=== PATIENT | male | born 1975 | race Caucasian/White ===

== ENCOUNTER 2023-01-31 12:27 | Inpatient (IN) | payer MEDICAID, OTHER ==
[~2023-01-31] VITALS: Ht 172.7 cm; Wt 98.8 kg
[2023-01-31 13:00] VITALS: PULSE 84; RESP 16; O2SAT 94
[2023-01-31 13:29] LABS: Basophils # (auto) 0 10 ^3/uL (0-0.2); Basophils % (auto) 0.2 % (0.0-2.0); Eosinophils # (auto) 0.1 10 ^3/uL (0-0.8); Eosinophils % (auto) 0.5 % (0.0-7.0); Lymphocytes # (auto) 3.9 10 ^3/uL (0.4-5.4); Lymphocytes % (auto) 34.8 % (10.0-50.0); Mean Corpuscular Hgb Conc. 33.4 g/dL (32.0-36.0); Mean Corpuscular Volume 89.7 fL (80.0-100.0); Monocytes # (auto) 0.5 10 ^3/uL (0-1.3); Monocytes % (auto) 4.6 % (0.0-12.0); Neutrophils # (auto) 6.8 10 ^3/uL (1.6-8.6); Neutrophils % (auto) 59.9 % (37.0-80.0); Red Blood Cells 5.01 10^6/uL (4.5-5.90); Red Cell Distribution Width 13.7 % (11.8-14.3); White Blood Cell 11.3 10^3/uL (4.4-10.8)
[2023-01-31] MEDS ORDERED: ONDANSETRON HCL 4 MG/2 ML VIAL IV ONE (13:30)
[2023-01-31] MEDS ORDERED: ACETAMINOPHEN 325 MG TAB PO ONE (13:30)
[2023-01-31] MEDS ORDERED: ASPirin 81 mg TAB PO ONE (13:30)
[2023-01-31 13:42] LABS: Albumin 3.6 g/dL (3.4-5.0); Calcium 9.3 mg/dL (8.5-10.1); Magnesium 2.2 mg/dL (1.6-2.6); Potassium 3.9 mmol/L (3.5-5.1)
[2023-01-31 13:48] LABS: BUN/Creatinine Ratio 12.7 (10.0-20.0); Bilirubin, Total 0.5 mg/dL (0.2-1.0)
[2023-01-31 13:51] LABS: INR 1.06 (0.9-1.15); Partial Thromboplastin Time 21.1 SEC (24.5-34.5)
[2023-01-31 15:02] LABS: Urine Bacteria NONE SEEN /hpf (None Seen); Urine Blood Negative /uL (Negative); Urine Mucus FEW (None Seen); Urine Specific Gravity 1.021 (1.001-1.035); Urine WBC 1 /hpf (0 - 3)
[2023-01-31 15:18] LABS: Alcohol, Urine < 3.0 mg/dL (0-10); Amphetamine Screen, Urine NEGATIVE (NEGATIVE); Barbiturate Scree,Urine NEGATIVE (NEGATIVE); Benzodiazephine Screen, Urine NEGATIVE (NEGATIVE); Cannabinoid Screen, Urine NEGATIVE (NEGATIVE); Cocaine Screen, Urine NEGATIVE (NEGATIVE); Opiate Scree,Urine NEGATIVE (NEGATIVE); Phencyclidine Screen, Urine NEGATIVE (NEGATIVE)
[2023-01-31] MEDS ORDERED: IOHEXOL 350 MG/ML 100ML IJ ONE (16:14)
[2023-01-31] MEDS ORDERED: AMIODARONE HCL 200 MG TAB PO ONE (16:45)
[2023-01-31] MEDS ORDERED: METOPROLOL SUCCINATE XL 50 MG TAB PO ONE (16:45)
[2023-01-31] MEDS ORDERED: MORPHINE SULFATE INJ 2 MG/ml SYRG IV PRN (16:45)
[2023-01-31] MEDS ORDERED: NITROGLYCERIN 0.4 MG SL TAB SL PRN (16:45)
[2023-01-31] MEDS ORDERED: ENOXAPARIN SOD 100 MG/1 ML SYRINGE SC ONE (17:00)
[2023-01-31 17:11] LABS: Cholesterol 191 mg/dL (< 200)
[2023-01-31 17:13] LABS: HDL Cholesterol 52 mg/dL (40-59); LDL Cholesterol 123 mg/dL (< 100); Triglycerides 84 mg/dL (< 150)
[2023-01-31 20:20] VITALS: PULSE 68; RESP 13; O2SAT 93
[2023-01-31] MEDS ORDERED: HYDROcodone-ACET 5/325MG TAB PO PRN (21:15)
[2023-01-31] MEDS ORDERED: DOCUSATE SOD 100 MG CAP PO PRN (21:15)
[2023-01-31] MEDS ORDERED: ONDANSETRON HCL 4 MG/2 ML VIAL IV PRN (21:15)
[2023-01-31] MEDS ORDERED: ACETAMINOPHEN 325 MG TAB PO PRN (21:15)
[2023-01-31 21:53] LABS: Free T3 3.05 pg/mL (2.3-4.2); Free T4 (Free Thyroxine) 0.97 ng/dL (0.89-1.76)
[2023-01-31] MEDS: SODIUM CHLORIDE 0.9% 1,000 ML IV SCH (22:19)
[2023-01-31] MEDS: AMIODARONE HCL 200 MG TAB PO SCH (22:19)
[2023-02-01 06:35] LABS: Basophils # (auto) 0 10 ^3/uL (0-0.2); Basophils % (auto) 0.4 % (0.0-2.0); Eosinophils # (auto) 0.4 10 ^3/uL (0-0.8); Eosinophils % (auto) 3.8 % (0.0-7.0); Hematocrit 41.5 % (41.0-53.0); Hemoglobin 14.1 g/dL (13.5-17.5); Lymphocytes # (auto) 1.9 10 ^3/uL (0.4-5.4); Lymphocytes % (auto) 20.2 % (10.0-50.0); Mean Corpuscular Hemoglobin 30.5 pg (28.0-32.0); Mean Corpuscular Hgb Conc. 33.9 g/dL (32.0-36.0); Mean Corpuscular Volume 89.9 fL (80.0-100.0); Monocytes # (auto) 0.8 10 ^3/uL (0-1.3); Monocytes % (auto) 8.3 % (0.0-12.0); Neutrophils # (auto) 6.3 10 ^3/uL (1.6-8.6); Neutrophils % (auto) 67.3 % (37.0-80.0); Red Blood Cells 4.61 10^6/uL (4.5-5.90); Red Cell Distribution Width 13.5 % (11.8-14.3); White Blood Cell 9.3 10^3/uL (4.4-10.8)
[2023-02-01 07:03] LABS: Potassium 4.1 mmol/L (3.5-5.1)
[2023-02-01 07:13] LABS: Albumin 3.3 g/dL (3.4-5.0); BUN/Creatinine Ratio 13.5 (10.0-20.0); Bilirubin, Total 0.4 mg/dL (0.2-1.0); Calcium 8.8 mg/dL (8.5-10.1); Total Protein 6.8 g/dL (6.4-8.2)
[2023-02-01 07:35] VITALS: PULSE 64; RESP 15; O2SAT 95
[2023-02-01] MEDS: ENOXAPARIN SOD 100 MG/1 ML SYRINGE SC SCH ×2 (09:01→20:25)
[2023-02-01] MEDS: AMIODARONE HCL 200 MG TAB PO SCH ×2 (10:48→21:52)
[2023-02-01] MEDS: MAGNESIUM OXIDE 400 MG TAB PO SCH (10:48)
[2023-02-01] MEDS: ASPirin 81 mg TAB PO SCH (10:48)
[2023-02-01] MEDS: METOPROLOL SUCCINATE XL 50 MG TAB PO SCH (10:51)
[2023-02-01] MEDS: SODIUM CHLORIDE 0.9% 1,000 ML IV SCH ×2 (14:00→21:52)
[2023-02-01 19:30] VITALS: BP 134/82; PULSE 70; RESP 18; TEMP 98.1
[2023-02-01 20:00] VITALS: BP 134/82; PULSE 70; PULSE 73; RESP 18; TEMP 98.1; O2SAT 97
[2023-02-01 22:00] VITALS: BP 134/82; PULSE 70; RESP 18; TEMP 98.1; O2SAT 97
[2023-02-02 05:00] VITALS: BP 118/76; PULSE 70; RESP 16; TEMP 97.6; O2SAT 96
[2023-02-02 08:00] VITALS: BP 134/82; PULSE 55; PULSE 70; RESP 18; TEMP 98.1; O2SAT 97
[2023-02-02] MEDS: ENOXAPARIN SOD 100 MG/1 ML SYRINGE SC SCH ×2 (08:00→20:48)
[2023-02-02] MEDS: ASPirin 81 mg TAB PO SCH (10:03)
[2023-02-02] MEDS: MAGNESIUM OXIDE 400 MG TAB PO SCH (10:03)
[2023-02-02] MEDS: METOPROLOL SUCCINATE XL 50 MG TAB PO SCH (10:03)
[2023-02-02] MEDS: AMIODARONE HCL 200 MG TAB PO SCH ×2 (10:03→21:02)
[2023-02-02 12:33] VITALS: BP 123/77; PULSE 64; RESP 21; TEMP 98; O2SAT 98
[2023-02-02 16:38] VITALS: BP 134/84; PULSE 63; RESP 21; TEMP 98; O2SAT 97
[2023-02-02 20:00] VITALS: BP 137/86; PULSE 61; PULSE 62; PULSE 70; RESP 20; TEMP 98.1; O2SAT 97
[2023-02-02 22:00] VITALS: BP 137/86; PULSE 62; RESP 20; TEMP 98.1; O2SAT 98
[2023-02-02] MEDS: SODIUM CHLORIDE 0.9% 1,000 ML IV SCH (23:15)
[2023-02-03] VITALS (11 sets, daily range): BP systolic 111–137; BP diastolic 63–84; PULSE 57–83; RESP 13–22; TEMP 97.7–98.1; O2SAT 93–100
[2023-02-03] MEDS ORDERED: LIDOCAINE 2%HCL (LOCAL ANESTH.) INJ 20ML MDV ONE (07:47)
[2023-02-03] MEDS ORDERED: IOHEXOL 350 MG/ML 100ML IJ ONE (07:47)
[2023-02-03] MEDS: ENOXAPARIN SOD 100 MG/1 ML SYRINGE SC SCH (08:00)
[2023-02-03] MEDS ORDERED: ANGIOMAX 250 MG VIAL IV ONE (08:01)
[2023-02-03] MEDS ORDERED: HEPARIN SODIUM (PORCINE) 5000 UNITS/ML 1ML VIAL ONE (08:01)
[2023-02-03] MEDS ORDERED: SODIUM CHL 0.9% 0 ML ONE (08:01)
[2023-02-03] MEDS ORDERED: VERAPAMIL 2.5MG/ML INJ 2ML VIAL IV ONE (08:01)
[2023-02-03] MEDS ORDERED: fentaNYL CITRATE 100 MCG/2 ML VL ONE (08:01)
[2023-02-03] MEDS ORDERED: MIDAZOLAM HCL 2MG/2ML 2ml VIAL (1mg/ml) ONE (08:01)
[2023-02-03] MEDS ORDERED: SODIUM CHL 0.9% 50 ML ONE (08:02)
[2023-02-03] MEDS: AMIODARONE HCL 200 MG TAB PO SCH ×2 (10:00→21:34)
[2023-02-03] MEDS: ASPirin 81 mg TAB PO SCH (10:00)
[2023-02-03] MEDS: METOPROLOL SUCCINATE XL 50 MG TAB PO SCH (10:00)
[2023-02-03] MEDS: MAGNESIUM OXIDE 400 MG TAB PO SCH (10:05)
[2023-02-03 11:58] LABS: Basophils # (auto) 0.1 10 ^3/uL (0-0.2); Basophils % (auto) 0.9 % (0.0-2.0); Eosinophils # (auto) 0.4 10 ^3/uL (0-0.8); Eosinophils % (auto) 5.5 % (0.0-7.0); Hematocrit 43.3 % (41.0-53.0); Lymphocytes # (auto) 2.1 10 ^3/uL (0.4-5.4); Lymphocytes % (auto) 28.4 % (10.0-50.0); Mean Corpuscular Hemoglobin 29.3 pg (28.0-32.0); Mean Corpuscular Hgb Conc. 32.3 g/dL (32.0-36.0); Mean Corpuscular Volume 90.7 fL (80.0-100.0); Monocytes # (auto) 0.5 10 ^3/uL (0-1.3); Monocytes % (auto) 6.9 % (0.0-12.0); Neutrophils # (auto) 4.3 10 ^3/uL (1.6-8.6); Neutrophils % (auto) 58.3 % (37.0-80.0); Nucleated Red Blood Cells % 0.2 %; Red Blood Cells 4.78 10^6/uL (4.5-5.90); Red Cell Distribution Width 13.7 % (11.8-14.3); White Blood Cell 7.3 10^3/uL (4.4-10.8)
[2023-02-03 12:17] LABS: Potassium 4.2 mmol/L (3.5-5.1)
[2023-02-03 12:24] LABS: BUN/Creatinine Ratio 11.5 (10.0-20.0)
[2023-02-03] MEDS: SODIUM CHLORIDE 0.9% 1,000 ML IV SCH (15:03)
[2023-02-03] MEDS ORDERED: ATORVASTATIN 20 MG TAB PO SCH (22:00)
[2023-02-04 04:45] VITALS: BP 129/64; PULSE 61; RESP 17; TEMP 97.6; O2SAT 99
[2023-02-04 06:49] LABS: Basophils # (auto) 0 10 ^3/uL (0-0.2); Basophils % (auto) 0.5 % (0.0-2.0); Eosinophils # (auto) 0.4 10 ^3/uL (0-0.8); Eosinophils % (auto) 4.9 % (0.0-7.0); Hematocrit 41.8 % (41.0-53.0); Lymphocytes % (auto) 26.2 % (10.0-50.0); Mean Corpuscular Hgb Conc. 33.6 g/dL (32.0-36.0); Mean Corpuscular Volume 89.2 fL (80.0-100.0); Monocytes # (auto) 0.6 10 ^3/uL (0-1.3); Monocytes % (auto) 8.3 % (0.0-12.0); Neutrophils # (auto) 4.7 10 ^3/uL (1.6-8.6); Neutrophils % (auto) 60.1 % (37.0-80.0); Red Blood Cells 4.69 10^6/uL (4.5-5.90); Red Cell Distribution Width 13.7 % (11.8-14.3); White Blood Cell 7.8 10^3/uL (4.4-10.8)
[2023-02-04 07:04] LABS: BUN/Creatinine Ratio 16.1 (10.0-20.0); Calcium 8.6 mg/dL (8.5-10.1); Potassium 4.1 mmol/L (3.5-5.1)
[2023-02-04 08:00] VITALS: PULSE 65
[2023-02-04] MEDS: ASPirin 81 mg TAB PO SCH (08:09)
[2023-02-04] MEDS: AMIODARONE HCL 200 MG TAB PO SCH (08:09)
[2023-02-04] MEDS: MAGNESIUM OXIDE 400 MG TAB PO SCH (08:09)
[2023-02-04 09:00] VITALS: BP 108/72; PULSE 61; TEMP 97.7; O2SAT 100
[2023-02-04] MEDS ORDERED: METO-6 PO (09:44)
[2023-02-04] MEDS ORDERED: AMIO200T33 PO (09:44)
[2023-02-04] MEDS: METOPROLOL SUCCINATE XL 50 MG TAB PO SCH (10:00)
[2023-02-04 10:47] VITALS: BP_SYST 117; BP_SYST 126; BP_SYST 139; BP_DIAS 78; BP_DIAS 84; PULSE 61
[2023-02-04] MEDS ORDERED: MAGN241.4 PO ×3 (11:06)
[2023-02-04 12:39] VITALS: BP 121/71; PULSE 66; RESP 21; TEMP 98.2; O2SAT 98
[2023-02-04 12:50] VITALS: BP 118/71; PULSE 60; TEMP 36.8
== END 2023-02-04 13:29 | disposition home or self-care (01) | DRG 192 ==
LOC: EDBD 12:27 → ER 12:27 → TELE 21:13 → TELE-WESTW 02-01 12:42
PROVIDERS: ADMIT Internal Medicine Pulmonary Disease; ATTEND Student in an Organized Health Care Education/Training Program
PROC: 4A023N7 Measurement of Cardiac Sampling and Pressure, Left Heart, Percutaneous Approach (ICD-10-PCS; principal; 2023-02-03)
PROC: B211YZZ Fluoroscopy of Multiple Coronary Arteries using Other Contrast (ICD-10-PCS; 2023-02-03)
PROC: B215YZZ Fluoroscopy of Left Heart using Other Contrast (ICD-10-PCS; 2023-02-03)
DX: R55 Syncope and collapse (principal); I47.20 Ventricular tachycardia, unspecified; N17.9 Acute kidney failure, unspecified; I48.0 Paroxysmal atrial fibrillation; D72.829 Elevated white blood cell count, unspecified; E66.9 Obesity, unspecified; R73.9 Hyperglycemia, unspecified; R94.6 Abnormal results of thyroid function studies; I16.0 Hypertensive urgency; R09.02 Hypoxemia; Z68.33 Body mass index [BMI] 33.0-33.9, adult; Z79.82 Long term (current) use of aspirin; Z79.899 Other long term (current) drug therapy; Z82.49 Family history of ischemic heart disease and other diseases of the circulatory system
CPT/HCPCS: 36415; 70450; 70551; 71045; 71275; 80048; 80053; 80061; 80307; 80320; 81001; 83036; 83735; 83880; 84439; 84443; 84481; 84484; 85025; 85379; 85610; 85730; 86850; 86900; 86901; 93005; 93306; 93458; 93886; 93970; 96372; 96374; 99152; 99291; G0378; J2250; J2405